=== PATIENT | female | born 1970 | race Caucasian/White ===

== ENCOUNTER 2024-12-04 19:11 | Observation (INO) | payer BC, SELFPAY ==
--- NOTE | ~2024-12-04 | XR_ITS ---
EXAMINATION: XR chest 1V portable DATE: 12/04/2024 21:39 INDICATION: Shortness of breath TECHNIQUE: frontal view of the chest was obtained. COMPARISON: None FINDINGS: The lungs are clear with no focal airspace opacities, pulmonary edema, pleural effusion or pneumothorax. The cardiomediastinal silhouette is normal. IMPRESSION: 1. No acute cardiopulmonary disease. Reviewed, dictated and finalized at location A.
--- NOTE | ~2024-12-04 | CT_ITS ---
EXAMINATION: CTA chest PE protocol DATE: 12/05/2024 09:50 INDICATION: Shortness of breath. TECHNIQUE: Computed tomography angiography (CTA) of the chest was performed with 100 mL Omnipaque-350 intravenous contrast timed to evaluate the pulmonary arteries. Coronal maximum intensity projection 3D-reconstructions were created by the technologist. Automated exposure control and iterative reconstruction technique were employed. The dose-length product was 1009.41 mGy-cm. COMPARISON: None. FINDINGS: The lungs demonstrate mild atelectasis. A calcified left lung nodule and calcified left hilar lymph nodes are consistent with old granulomatous disease. No pleural effusion. The heart size is normal. No pericardial effusion. There is no pulmonary embolus. There are changes of cholecystectomy. Calcifications in the spleen are consistent with old granulomatous disease. There is severe cervical, thoracic, and lumbar spondylosis. IMPRESSION: 1. No pulmonary embolus. Reviewed, dictated and finalized at location E. IMPRESSION: 1. No pulmonary embolus.
[2024-12-04 19:13] VITALS: BP 211/130; PULSE 107; RESP 18; TEMP 36.2; O2SAT 98
--- NOTE | 2024-12-04 19:13 | ECG_ITS ---
Test Date: 2024-12-04 19:19:48 Measurements Intervals [place] Rate: 105 P: 50 VA: 182 QRS: 61 QRSD: 110 T: 42 QT: 372 QTc: 492 Interpretive Statements SINUS TACHYCARDIA POSSIBLE LEFT ATRIAL ENLARGEMENT CONSIDER INFERIOR INFARCT, AGE INDETERMINATE CONSIDER ANTERIOR INFARCT, AGE INDETERMINATE BASELINE ARTIFACT- I, II, III, AVR, AVL, AVF, V1-V6 ABNORMAL ECG No previous ECG available for comparison Electronically Signed On 12-05-2024 06:33:11 CDT by Camilo Sauer D.O.
[2024-12-04 21:27] VITALS: BP 201/124; PULSE 86; RESP 13; O2SAT 98; O2SAT 99
[2024-12-04 21:39] LABS: Hematocrit 44.8 % (37.0-47.0); Hemoglobin 14.8 g/dL (12.0-15.0); Immature Granulocyte Percent A 0.4 % (0-0.5); Lymphocytes Absolute Auto 0.85 K/mm3 (0.9-3.2); Mean Corpuscular HGB Conc 33.0 g/dl (32-36); Mean Corpuscular Hemoglobin 30.6 pg (26-34); Mean Corpuscular Volume 92.8 fl (80-100); Nucleated Red Blood Cells Absolute Auto 0.000 K/mm3 (0.0-0.012); Nucleated Red Blood Cells Perc 0.0 % (0.0-0.2); Platelet Count Result 204 k/mm3 (150-375); Red Blood Count 4.83 M/mm3 (4.2-5.4); White Blood Count 8.5 K/mm3 (4.5-10.0)
[2024-12-04 21:51] LABS: Alanine Aminotransferase 29 U/L (6-35); Albumin Level 4.8 g/dL (3.5-5.1); Alkaline Phosphatase 126 U/L (38-126); Anion Gap 10 mmol/L (4-12); Aspartate Amino Transferase 37 U/L (14-36); Bilirubin,Total 0.6 mg/dL (0.2-1.3); Blood Urea Nitrogen 18 mg/dL (7-17); Calcium 9.5 mg/dL (8.4-10.2); Carbon Dioxide 25 mmol/L (22-30); Chloride 102 mmol/L (98-107); Estimated CRCL calculation 96 ml/min; Estimated Glomerular Filt Rate > 60; Glucose 127 mg/dL (65-110); Potassium 3.2 mmol/L (3.4-5.0); Sodium 137 mmol/L (137-145); Total Protein 8.3 g/dL (6.3-8.2)
--- NOTE | 2024-12-04 22:27 | ED.SOB ---
HPI - SOB/Dyspnea General Chief Complaint: Shortness of Breath/Dyspnea Stated Complaint: shortness of breath Time Seen by Provider: 12/04/24 22:07 Source: patient Mode of arrival: ambulatory Limitations: no limitations History of Present Illness HPI Narrative: Patient is a 54-year-old female presents to the emergency department accompanied by her son complaining of shortness of breath and nausea. Patient states she took a 5 hour energy shot her dinnertime and started to feel very nauseous and short of breath. Source of breath seems to be improving. Patient states she has high blood pressure and takes medications. Patient denies any chest pain. Patient was of symptoms and to be improving. Patient denies history of COPD. Patient has history of heart disease. Patient denies any recent injuries or recent illness. Patient denies any vomiting, melena, hematochezia, fever, focal weakness, numbness, cough. Patient denies any history of abnormal heart rhythms. Patient denies ever wearing a Holter monitor. Patient denies history of blood clots or unilateral lower extremity swelling. Related Data Allergies Allergy/AdvReac Type Severity Reaction Status Date / Time No Known Allergies Allergy Unverified 01/15/12 11:05 Review of Systems Review of Systems: A 10 system review of systems was completed on the patient and is negative except for what is stated in the HPI. Nursing and ancillary documentation was reviewed. Exam Narrative: CONST: No acute distress. Well nourished. HENMT: Head is normocephalic and atraumatic. Moist mucous membranes. No posterior oropharynx erythema. EYES: No scleral icterus. No conjunctival injection or pallor. PERRL. NECK: No meningeal signs. RESP: Able to speak in full sentences. Normal respiratory effort. CTAB. CARDIO: Regular rate. Regular rhythm. 2+ DP and radial pulses bilaterally. GI: Nondistended. No tenderness to palpation. Soft. : No CVA tenderness to palpation. SKIN: No rashes or lesions noted on exposed skin. NEURO: Oriented x3. Moves all extremities. EXTREM/MSK/BACK: No pedal edema. PSYCH: Normal affect. Course Vital Signs Vital signs: Vital Signs Temperature 97.2 F L 12/04/24 19:13 Pulse Rate 107 H 12/04/24 19:13 Respiratory Rate 18 12/04/24 19:13 Blood Pressure 211/130 H 12/04/24 19:13 Pulse Oximetry 98 12/04/24 19:13 Oxygen Delivery Room Air 12/04/24 19:13 Temperature 97.2 F L 12/04/24 19:13 Pulse Rate 78 12/04/24 23:39 Respiratory Rate 18 12/04/24 23:39 Blood Pressure 167/114 H 12/04/24 23:39 Pulse Oximetry 99 12/04/24 23:39 Oxygen Delivery Room Air 12/04/24 21:27 MDM - SOB/Dyspnea MDM Narrative Medical decision making narrative: Patient presents with the above complaint. Initial vitals are remarkable for tachycardia, blood pressure 211/130. Physical examination as noted above. DDx includes was not limited to: ACS, dysrhythmia, thyroid dysfunction, metabolic derangement, electrolyte derangement, pulmonary embolism, dehydration, adverse effect of caffeine, hypertensive urgency. Plan discussed: laboratory analysis, EKG, imaging. Patient ordered IVF, labetalol. EKG performed at 7:19 p.m. reveals a rate of 105, rhythm is sinus tachycardia, axis is normal, no ST elevations or depressions, no T-wave abnormalities, no previous EKG on file for comparison. Patient reports also being on Adderall at home sick potential confounder with double stimulant with the 5 hour energy in addition to the Adderall medication. Repeat troponin is less than 0.012. Patient is not having any chest pain. Patient was reassessed at the bedside. No changes in physical exam. Patient is in no acute distress. The patient has remained stable throughout the entire ED visit. Counseled patient regarding diagnostic results and potential diagnosis. Anticipatory guidance provided. Patient instructed to follow up with PCP and cardiology in 2 days. Patient counseled on: false reassurance from an emergency department evaluation; no current evidence of a medical emergency; return immediately for any new, recurrent, worsening, concerning, or refractory symptoms. Medications discussed with patient. Additional verbal and printed discharge instructions were given and discussed with the patient. Patient verbally acknowledges understanding of condition and discharge instructions. All questions were answered to the patient's satisfaction. Patient is in agreement with the plan of care. The patient is stable for discharge and was discharged without incident. Medical Records Attestation: I reviewed the patient's medical records. Lab Data Attestation: I reviewed the patient's lab results. Lab results narrative: CBC reveals no significant abnormalities. Comprehensive metabolic panel reveals a potassium 3.2, BUN of 18, glucose 127, AST of 37. Magnesium is 2.0. Troponin is less than 0.012. BNP is 101. Lipase 72. TSH is 1.97. D-dimer is 0.44. 12/04/24 21:33 12/04/24 21:33 Labs: Lab Results 12/04/24 12/05/24 Range/Units 21:33 00:36 WBC 8.5 (4.5-10.0) K/mm3 RBC 4.83 (4.2-5.4) M/mm3 Hgb 14.8 (12.0-15.0) g/dL Hct 44.8 (37.0-47.0) % MCV 92.8 (80-100) fl MCH 30.6 (26-34) pg MCHC 33.0 (32-36) g/dl RDW 12.4 (11.5-14.5) % Plt Count 204 (150-375) k/mm3 MPV 9.6 (7.4-10.4) fl Immature Gran % (Auto) 0.4 (0-0.5) % Neut % (Auto) 84.5 H (45.5-73.1) % Lymph % (Auto) 10.0 L (18.3-44.2) % [place] % (Auto) 4.1 (2.6-8.5) % Eos % (Auto) 0.5 (0-4.4) % Baso % (Auto) 0.5 (0.2-1.2) % Lymph # (Auto) 0.85 L (0.9-3.2) K/mm3 [place] # (Auto) 0.4 (0.1-0.6) K/mm3 Eos # (Auto) 0.0 (0-0.3) K/mm3 Baso # (Auto) 0.0 (0.0-0.1) K/mm3 Abs Immat Gran (auto) 0.03 (0.00-0.031) K/mm3 Absolute Neuts (auto) 7.2 H (1.3-6.7) K/mm3 Absolute Nucleated RBC 0.000 (0.0-0.012) K/mm3 Nucleated RBC % 0.0 (0.0-0.2) % D-Dimer 0.44 (<0.48) ug/mL Sodium 137 (137-145) mmol/L Potassium 3.2 L (3.4-5.0) mmol/L Chloride 102 (98-107) mmol/L Carbon Dioxide 25 (22-30) mmol/L Anion Gap 10 (4-12) mmol/L BUN 18 H (7-17) mg/dL Creatinine 0.69 L (0.7-1.0) mg/dL Estim Creat Clear Calc 96 ml/min Estimated GFR > 60 (59 - ) Glucose 127 H (65-110) mg/dL Calcium 9.5 (8.4-10.2) mg/dL Magnesium 2.0 (1.6-2.3) mg/dL Total Bilirubin 0.6 (0.2-1.3) mg/dL AST 37 H (14-36) U/L ALT 29 (6-35) U/L Alkaline Phosphatase 126 (38-126) U/L Troponin I < 0.012 < 0.012 (0.000-0.034) ng/mL NT-Pro-B Natriuret Pep 101 H (19.9-100) pg/mL Total Protein 8.3 H (6.3-8.2) g/dL Albumin 4.8 (3.5-5.1) g/dL Lipase 72 (23-300) U/L TSH (Reflex) 1.970 (0.465-4.68) uIU/mL Discharge Plan Discharge Clinical Impression: Acute dyspnea, Caffeine overdose, Acute hypokalemia, Hypertension, Other stimulant use, unspecified with intoxication delirium Patient Disposition: Home Condition: Stable Instructions: Antibiotic Form, Hypokalemia (ED), Dyspnea (ED), Caffeine Use (ED) Additional Instructions: Follow-up with your primary care physician and Cardiology in the next 2-3 days for reassessment, you will likely benefit from further outpatient workup such as a Holter monitor amongst other interventions such as stress testing. Avoid any caffeine use or any significant strenuous activity until seen by her doctors. Rest stay well-hydrated. Return immediately to the emergency department for any new or concerning symptoms especially any emergent concerns for life, limb, eyesight. Patient Language: [place] Follow-up/Referrals: Selam Mendenhall DO [Physician, Cardiology] - 2 Days Jhony Montalvo MD [Primary Care Provider, [facility]] - 2 Days Time of Disposition: 01:23
[2024-12-04] MEDS: POTASSIUM CHLORIDE 20 MEQ PACKET (FOR LIQUID) 40 MEQ PO (22:37)
[2024-12-04] MEDS: SODIUM CHLORIDE 0.9% IV 500 ML 999 ML IV CONT (22:37)
[2024-12-04] MEDS: ONDANSETRON INJ 4 MG/2 ML VIAL IV PUSH (22:37)
[2024-12-04 22:56] LABS: Lipase 72 U/L (23-300); Magnesium 2.0 mg/dL (1.6-2.3)
[2024-12-04 23:07] LABS: NT Pro B Type Natriuretic Pept 101 pg/mL (19.9-100); Troponin I < 0.012 ng/mL (0.000-0.034)
[2024-12-04 23:28] LABS: Thyroid Stimulating Hormone Reflex 1.970 uIU/mL (0.465-4.68)
[2024-12-04 23:39] VITALS: BP 167/114; PULSE 78; RESP 18; O2SAT 99
[2024-12-05] VITALS (13 sets, daily range): BP systolic 139–186; BP diastolic 84–125; PULSE 72–88; RESP 14–22; TEMP 36.6–36.8; O2SAT 96–100; BMI 38.9
--- NOTE | 2024-12-05 00:33 | ECG_ITS ---
Test Date: 2024-12-05 00:39:35 Measurements Intervals [place] Rate: 79 P: 42 TN: 194 QRS: 53 QRSD: 113 T: 42 QT: 427 QTc: 491 Interpretive Statements SINUS RHYTHM POSSIBLE LEFT ATRIAL ENLARGEMENT CONSIDER INFERIOR INFARCT, AGE INDETERMINATE BASELINE ARTIFACT- I, II, III, AVL, AVF ABNORMAL ECG Compared to ECG 12/04/2024 19:19:48 HEART RATE HAS DECREASED Electronically Signed On 12-05-2024 06:25:47 CDT by Camilo Sauer D.O.
[2024-12-05 01:04] LABS: Troponin I < 0.012 ng/mL (0.000-0.034)
--- NOTE | 2024-12-05 02:02 | PM.IMHP ---
H&P: HPI History of Present Illness Date/Time: 12/05/24 02:02 Chief Complaint: Shortness of breath Narrative: 54-year-old female with PMH uncontrolled hypertension, obesity class 2, ADD, caffeine intake, hypothyroidism, presents to [facility] ER on 12/04/2024 complaining of shortness of breath and nausea. Patient reports she has not taken her losartan for 2 days because she forgot, she has had uncontrolled blood pressure in the clinic and they were adjusting her medications. She drinks 2 coffees the morning of admission, she drank another 5 hour energy around dinner time because she was going to help someone set up a garage sale and felt tired. She lives with her son, her son reports his uncle mixes Ritalin into his 5 hour energy drink and it is possible she drink that one. The patient took her Adderall on the morning of admission. She reports the energy drink she had tasted odd. She denies any other drug abuse, smoking, alcohol use. Potassium 3.2 on admission, magnesium 2.0, troponin negative, D-dimer 0.44. EKG without significant ST changes. Blood pressure on arrival to , patient was given labetalol 20 mg IV x1 and her blood pressure improved to 167/114. I reviewed x-ray chest and there is no acute findings, final interpretation is pending. Patient does not have any leg swelling. She denies cough, fever, abdominal pain, diarrhea. In the ER she was given potassium pill, labetalol as described above, Zofran, she had no further chest pain or shortness of breath. Review of Systems Review of Systems: All systems reviewed & are unremarkable except as noted in HPI and below (Subjective) Meds Home Medications and Allergies Allergies Allergy/AdvReac Type Severity Reaction Status Date / Time No Known Allergies Allergy Unverified 01/15/12 11:05 Vital Signs Vital Signs - 24 hr 12/04/24 19:13 12/04/24 21:27 12/04/24 21:27 Temperature 97.2 F L Pulse Rate 107 H 86 Respiratory Rate 18 13 Blood Pressure 211/130 H 201/124 H Pulse Oximetry 98 98 99 Oxygen Delivery Room Air Room Air Room Air 12/04/24 23:39 Temperature Pulse Rate 78 Respiratory Rate 18 Blood Pressure 167/114 H Pulse Oximetry 99 Oxygen Delivery Exam Const: General: comfortable and no acute distress Other: A&O x3, obese HENMT: Mouth: Yes moist mucous membranes Eyes: Pupils: Equal, round and reactive pupils present Neck: Neck: supple Resp: Effort & Inspection: normal respiratory effort Auscultation: clear to auscultation bilaterally Cardio: Rate: regular rate Rhythm: regular rhythm Heart sounds: no murmurs GI: Inspection: non-distended GI Palp: Yes Soft to palpation and No Tenderness to palpation present (GI) : General: Yes bladder normal to palpation Neuro: Motor exam (neuro): 5/5 motor strength present throughout Extrem: General: no edema H&P: Results Labs Labs: Short CBC 12/04/24 Range/Units 21:33 WBC 8.5 (4.5-10.0) K/mm3 Hgb 14.8 (12.0-15.0) g/dL Hct 44.8 (37.0-47.0) % Plt Count 204 (150-375) k/mm3 BMP 12/04/24 21:33 Sodium 137 Potassium 3.2 L Chloride 102 Carbon Dioxide 25 BUN 18 H Creatinine 0.69 L Glucose 127 H Calcium 9.5 Cardiac Enzymes 12/04/24 12/05/24 Range/Units 21:33 00:36 Troponin I < 0.012 < 0.012 (0.000-0.034) ng/mL Liver Function 12/04/24 Range/Units 21:33 Total Bilirubin 0.6 (0.2-1.3) mg/dL AST 37 H (14-36) U/L ALT 29 (6-35) U/L Alkaline Phosphatase 126 (38-126) U/L Albumin 4.8 (3.5-5.1) g/dL Assessment and Plan Assessment and plan (1) Hypertensive urgency: Code(s): I16.0 - Hypertensive urgency Status: Acute (2) Hypertension: Code(s): I10 - Essential (primary) hypertension Status: Acute (3) Acute hypokalemia: Code(s): E87.6 - Hypokalemia Status: Acute (4) Stimulant intoxication: Code(s): F15.929 - Other stimulant use, unspecified with intoxication, unspecified Status: Acute Plan 54-year-old female with PMH uncontrolled hypertension, obesity class 2, ADD, caffeine intake, hypothyroidism, presents to [facility] ER on 12/04/2024 complaining of shortness of breath and nausea. Patient reports she has not taken her losartan for 2 days because she forgot, she has had uncontrolled blood pressure in the clinic and they were adjusting her medications. She drinks 2 coffees the morning of admission, she drank another 5 hour energy around dinner time because she was going to help someone set up a garage sale and felt tired. She lives with her son, her son reports his uncle mixes Ritalin into his 5 hour energy drink and it is possible she drink that one. The patient took her Adderall on the morning of admission. She reports the energy drink she had tasted odd. She denies any other drug abuse, smoking, alcohol use. Potassium 3.2 on admission, magnesium 2.0, troponin negative, D-dimer 0.44. EKG without significant ST changes. Blood pressure on arrival to 11/130, patient was given labetalol 20 mg IV x1 and her blood pressure improved to 167/114. I reviewed x-ray chest and there is no acute findings, final interpretation is pending. Patient does not have any leg swelling. She denies cough, fever, abdominal pain, diarrhea. In the ER she was given potassium pill, labetalol as described above, Zofran, she had no further chest pain or shortness of breath. ----- She reports after she took the 5 hour energy drink she felt very off, her heart was beating very fast. Her high blood pressure, shortness of breath, chest pressure likely primarily due to stimulant overuse. At the same time, she forgot to take her losartan, she has uncontrolled blood pressure. At this time we will admit the patient to IMU for further blood pressure control in telemetry. Restart losartan 100 mg p.o. q.day, start amlodipine 10 mg p.o. q.day. hydralazine 10 mg IV q.8 hours p.r.n. for SBP greater than 180. Counseled the patient on the importance of adhering to medication plan. She agrees and understands. Replace potassium as well as that can precipitate hypertension. Trend potassium and magnesium. Patient wishes to be full code. Saline lock IV. SCDs. Hospitalist MIPS Advance Care Plan I have confirmed that the patient's Advanced Care Plan is present, code status is documented, or surrogate decision maker is listed in patient medical record.: Yes Medication Reconciliation I have utilized all available resources to obtain, update and review the patients current medications (includes all prescriptions, OTC, herbals, cannabis, and nutritional supplements).: Yes
[2024-12-05] MEDS: LOSARTAN POTASSIUM 100 MG TABLET PO (02:14)
--- NOTE | 2024-12-05 07:12 | ADMGEN ---
This patient, Jessica Ruiz, was admitted to [facility]. Patient/family oriented to hospital policies and general routines including ID bracelet, bed and alarms, visiting hours, pain management, procedures, bathroom and other care routines, personal items, smoking policy, room service/diet, and visiting hours. Information on how to activate the Rapid Response Team has been discussed. Patient/Family are encouraged to report perceived risks to care and to ask questions if they do not understand what they are told or what they should do.
--- NOTE | 2024-12-05 08:59 | P.PNIM_ITS ---
Progress Note: A&P Assessment and Plan (1) Stimulant intoxication: Code(s): F15.929 - Other stimulant use, unspecified with intoxication, unspecified Status: Acute Assessment and Plan: * Reportedly took a 5 hour energy at around dinner time and felt off after that, with a very fast heart beat * Likely underlying cause of shortness of breath, chest pressure * Has not been taking losartan * Blood pressure upon admission: (2) Hypertensive urgency: Code(s): I16.0 - Hypertensive urgency Status: Acute Assessment and Plan: * Patient's blood pressure was reviewed on 12/05 * Blood pressure remains well controlled * Will continue current medications (3) Hypertension: Code(s): I10 - Essential (primary) hypertension Status: Acute Assessment and Plan: * See above (4) Acute hypokalemia: Code(s): E87.6 - Hypokalemia Status: Acute Plan 54-year-old female with PMH uncontrolled hypertension, obesity class 2, ADD, caffeine intake, hypothyroidism, presents to [facility] ER on 12/04/2024 complaining of shortness of breath and nausea. Patient reports she has not taken her losartan for 2 days because she forgot, she has had uncontrolled blood pressure in the clinic and they were adjusting her medications. She drinks 2 coffees the morning of admission, she drank another 5 hour energy around dinner time because she was going to help someone set up a garage sale and felt tired. She lives with her son, her son reports his uncle mixes Ritalin into his 5 hour energy drink and it is possible she drink that one. The patient took her Adderall on the morning of admission. She reports the energy drink she had tasted odd. She denies any other drug abuse, smoking, alcohol use. Potassium 3.2 on admission, magnesium 2.0, troponin negative, D-dimer 0.44. EKG without significant ST changes. Blood pressure on arrival to 11/130, patient was given labetalol 20 mg IV x1 and her blood pressure improved to 167/114. I reviewed x-ray chest and there is no acute findings, final interpretation is pending. Patient does not have any leg swelling. She denies cough, fever, abdominal pain, diarrhea. In the ER she was given potassium pill, labetalol as described above, Bethanyfran, she had no further chest pain or shortness of breath. ----- She reports after she took the 5 hour energy drink she felt very off, her heart was beating very fast. Her high blood pressure, shortness of breath, chest pressure likely primarily due to stimulant overuse. At the same time, she forgot to take her losartan, she has uncontrolled blood pressure. At this time we will admit the patient to IMU for further blood pressure control in telemetry. Restart losartan 100 mg p.o. q.day, start amlodipine 10 mg p.o. q.day. hydralazine 10 mg IV q.8 hours p.r.n. for SBP greater than 180. Cou nseled the patient on the importance of adhering to medication plan. She agrees and understands. Replace potassium as well as that can precipitate hypertension. Trend potassium and magnesium. Patient wishes to be full code. Saline lock IV. SCDs. Subjective Date/time seen: 12/05/24 08:59 Interval history: 54-year-old female with PMH uncontrolled hypertension, obesity class 2, ADD, caffeine intake, hypothyroidism, presents to [facility] ER on 12/04/2024 complaining of shortness of breath and nausea. Patient reports she has not taken her losartan for 2 days because she forgot, she has had uncontrolled blood pressure in the clinic and they were adjusting her medications. 12/05/2024 Review of Systems Review of Systems: All systems reviewed & are unremarkable except as noted in HPI and below Exam Const: General: comfortable and no acute distress Other: A&O x3, obese HENMT: Mouth: Yes moist mucous membranes Eyes: Pupils: Equal, round and reactive pupils present Neck: Neck: supple Resp: Effort & Inspection: normal respiratory effort Auscultation: clear to auscultation bilaterally Cardio: Rate: regular rate Rhythm: regular rhythm Heart sounds: no murmurs GI: Inspection: non-distended : General: Yes bladder normal to palpation Bimanual exam- vagina & uterus: bladder normal to palpation Neuro: Cranial nerves: Yes Equal, round and reactive pupils present Motor exam (neuro): 5/5 motor strength present throughout Extrem: General: no edema Objective Data Vital Signs Vital Signs: Vital Signs - 24 hr 12/04/24 19:13 12/04/24 21:27 12/04/24 21:27 Temperature 97.2 F L Pulse Rate 107 H 86 Respiratory Rate 18 13 Blood Pressure 211/130 H 201/124 H Pulse Oximetry 98 98 99 Oxygen Delivery Room Air Room Air Room Air 12/04/24 23:39 12/05/24 02:14 12/05/24 02:14 Temperature Pulse Rate 78 75 75 Respiratory Rate 18 22 H Blood Pressure 167/114 H 186/122 H Pulse Oximetry 99 99 Oxygen Delivery 12/05/24 03:19 12/05/24 04:24 12/05/24 05:00 Temperature Pulse Rate 73 72 80 Respiratory Rate 18 18 20 Blood Pressure 180/125 H 175/120 H 182/122 H Pulse Oximetry 99 98 97 Oxygen Delivery 12/05/24 05:37 12/05/24 06:01 12/05/24 07:00 Temperature 97.8 F Pulse Rate 82 83 82 Respiratory Rate 18 18 22 H Blood Pressure 153/103 H 143/93 H 143/84 H Pulse Oximetry 99 98 100 Oxygen Delivery 12/05/24 08:00 Temperature 98.2 F Pulse Rate 79 Respiratory Rate 18 Blood Pressure 145/91 H Pulse Oximetry 97 Oxygen Delivery Intake/Output Intake/Output: Intake & Output 12/02/24 12/03/24 12/04/24 12/05/24 23:59 23:59 23:59 23:59 Intake Total 500 Balance 500 Meds/Results Medications: Active Medications Generic Name Dose Route Start Last Admin Trade Name Freq PRN Reason Stop Dose Admin Amlodipine Besylate 10 mg 12/05/24 02:00 12/05/24 02:14 Amlodipine Besylate 10 Mg Tablet PO 10 mg DAILY RADHA Administration Hydralazine HCl 10 mg 12/05/24 02:01 12/05/24 04:54 Hydralazine Hcl 20 Mg/Ml Vial IV PUSH 10 mg Q8H PRN Administration Blood Pressure - High Losartan Potassium 100 mg 12/05/24 02:00 12/05/24 02:14 Losartan Potassium 100 Mg Tablet PO 100 mg DAILY RADHA Administration Labs Labs: Laboratory Results - last 24 hr 12/04/24 12/05/24 21:33 00:36 WBC 8.5 RBC 4.83 Hgb 14.8 Hct 44.8 MCV 92.8 MCH 30.6 MCHC 33.0 RDW 12.4 Plt Count 204 MPV 9.6 Immature Gran % (Auto) 0.4 Neut % (Auto) 84.5 H Lymph % (Auto) 10.0 L [place] % (Auto) 4.1 Eos % (Auto) 0.5 Baso % (Auto) 0.5 Lymph # (Auto) 0.85 L [place] # (Auto) 0.4 Eos # (Auto) 0.0 Baso # (Auto) 0.0 Abs Immat Gran (auto) 0.03 Absolute Neuts (auto) 7.2 H Absolute Nucleated RBC 0.000 Nucleated RBC % 0.0 D-Dimer 0.44 Sodium 137 Potassium 3.2 L Chloride 102 Carbon Dioxide 25 Anion Gap 10 BUN 18 H Creatinine 0.69 L Estim Creat Clear Calc 96 Estimated GFR > 60 Glucose 127 H Calcium 9.5 Magnesium 2.0 Total Bilirubin 0.6 AST 37 H ALT 29 Alkaline Phosphatase 126 Troponin I < 0.012 < 0.012 NT-Pro-B Natriuret Pep 101 H Total Protein 8.3 H Albumin 4.8 Lipase 72 TSH (Reflex) 1.970
[2024-12-05 09:38] LABS: Hematocrit 42.5 % (37.0-47.0); Hemoglobin 14.0 g/dL (12.0-15.0); Immature Granulocyte Percent A 0.3 % (0-0.5); Lymphocytes Absolute Auto 1.46 K/mm3 (0.9-3.2); Mean Corpuscular HGB Conc 32.9 g/dl (32-36); Mean Corpuscular Hemoglobin 30.6 pg (26-34); Mean Corpuscular Volume 92.8 fl (80-100); Nucleated Red Blood Cells Absolute Auto 0.000 K/mm3 (0.0-0.012); Nucleated Red Blood Cells Perc 0.0 % (0.0-0.2); Platelet Count Result 211 k/mm3 (150-375); Red Blood Count 4.58 M/mm3 (4.2-5.4); White Blood Count 6.5 K/mm3 (4.5-10.0)
[2024-12-05 10:37] LABS: Anion Gap 7 mmol/L (4-12); Blood Urea Nitrogen 14 mg/dL (7-17); Calcium 9.3 mg/dL (8.4-10.2); Carbon Dioxide 25 mmol/L (22-30); Chloride 102 mmol/L (98-107); Estimated CRCL calculation 95 ml/min; Estimated Glomerular Filt Rate > 60; Glucose 123 mg/dL (65-110); Magnesium 2.1 mg/dL (1.6-2.3); Potassium 3.7 mmol/L (3.4-5.0); Sodium 134 mmol/L (137-145)
--- NOTE | 2024-12-05 10:57 | ADMGEN ---
This patient, Jessica Ruiz, was admitted to IMU Room 202-. Patient/family oriented to hospital policies and general routines including ID bracelet, bed and alarms, visiting hours, pain management, procedures, bathroom and other care routines, personal items, smoking policy, room service/diet, and visiting hours. Information on how to activate the Rapid Response Team has been discussed. Patient/Family are encouraged to report perceived risks to care and to ask questions if they do not understand what they are told or what they should do.
--- NOTE | 2024-12-05 14:24 | P.DS_ITS ---
DS: Admitting Diagnosis Discharge Date 12/05/2024 Admitting Diagnosis Stimulant intoxication, hypertensive urgency DS: Discharge Diagnosis Discharge Diagnosis (1) Stimulant intoxication: Code(s): F15.929 - Other stimulant use, unspecified with intoxication, unspecified Status: Acute Assessment and Plan: * Reportedly took a 5 hour energy at around dinner time and felt off after that, with a very fast heart beat * Likely underlying cause of shortness of breath, chest pressure * Has not been taking losartan (2) Hypertensive urgency: Code(s): I16.0 - Hypertensive urgency Status: Acute Assessment and Plan: * Patient's blood pressure was reviewed on 12/05 * Blood pressure remains well controlled * Will continue current medications (3) Hypertension: Code(s): I10 - Essential (primary) hypertension Status: Acute Assessment and Plan: * See above (4) Acute hypokalemia: Code(s): E87.6 - Hypokalemia Status: Acute Plan 54-year-old female with PMH uncontrolled hypertension, obesity class 2, ADD, caffeine intake, hypothyroidism, presents to [facility] ER on 12/04/2024 complaining of shortness of breath and nausea. Patient reports she has not taken her losartan for 2 days because she forgot, she has had uncontrolled blood pressure in the clinic and they were adjusting her medications. She drinks 2 coffees the morning of admission, she drank another 5 hour energy around dinner time because she was going to help someone set up a garage sale and felt tired. She lives with her son, her son reports his uncle mixes Ritalin into his 5 hour energy drink and it is possible she drink that one. The patient took her Adderall on the morning of admission. She reports the energy drink she had tasted odd. She denies any other drug abuse, smoking, alcohol use. Potassium 3.2 on admission, magnesium 2.0, troponin negative, D-dimer 0.44. EKG without significant ST changes. Blood pressure on arrival to 11/130, patient was given labetalol 20 mg IV x1 and her blood pressure improved to 167/114. I reviewed x-ray chest and there is no acute findings, final interpretation is pending. Patient does not have any leg swelling. She denies cough, fever, abdominal pain, diarrhea. In the ER she was given potassium pill, labetalol as described above, Joe, she had no further chest pain or shortness of breath. ----- She reports after she took the 5 hour energy drink she felt very off, her heart was beating very fast. Her high blood pressure, shortness of breath, chest pressure likely primarily due to stimulant overuse. At the same time, she forgot to take her losartan, she has uncontrolled blood pressure. At this time we will admit the patient to IMU for further blood pressure control in telemetry. Restart losartan 100 mg p.o. q.day, start amlodipine 10 mg p.o. q.day. hydralazine 10 mg IV q.8 hours p.r.n. for SBP greater than 180. Counseled the patient on the importance of adhering to medication plan. She agrees and understands. Replace potassium as well as that can precipitate hypertension. Trend potassium and magnesium. Patient wishes to be full code. Saline lock IV. SCDs. DS: Summary Hospital Course Reason for hospitalization: Shortness of breath Hospital Course: Per HPI: 54-year-old female with PMH uncontrolled hypertension, obesity class 2, ADD, caffeine intake, hypothyroidism, presents to [facility] ER on 12/04/2024 complaining of shortness of breath and nausea. Patient reports she has not taken her losartan for 2 days because she forgot, she has had uncontrolled blood pressure in the clinic and they were adjusting her medications. She drinks 2 coffees the morning of admission, she drank another 5 hour energy around dinner time because she was going to help someone set up a garage sale and felt tired. She lives with her son, her son reports his uncle mixes Ritalin into his 5 hour energy drink and it is possible she drink that one. The patient took her Adderall on the morning of admission. She reports the energy drink she had tasted odd. She denies any other drug abuse, smoking, alcohol use. Potassium 3.2 on admission, magnesium 2.0, troponin negative, D-dimer 0.44. EKG without significant ST changes. Blood pressure on arrival to 11/130, patient was given labetalol 20 mg IV x1 and her blood pressure improved to 167/114. I reviewed x-ray chest and there is no acute findings, final interpretation is pending. Patient does not have any leg swelling. She denies cough, fever, abdominal pain, diarrhea. In the ER she was given potassium pill, labetalol as described above, Zofran, she had no further chest pain or shortness of breath. She was admitted to the IMU for further blood pressure control in telemetry. Upon further investigation, patient revealed that her brother reported put crystal meth in his 5 hour energy drink and she accidentally drank half of this before realizing this was not her normal drink. At this point she still feels slightly anxious but this improved after our discussion. At time of examination, she denied any chest pain, shortness of breath, nausea/vomiting, dizziness/headache or numbness/tingling. Chest CTA was obtained to rule out pulmonary embolism and this was negative for any acute findings. Blood work and vital signs remained stable throughout hospitalization. Patient is otherwise hemodynamically stable for discharge at this time. She is amenable to discharge as well. Plan for discharge home at this time. Status at Discharge Functional status at discharge: independent ambulation Overall status at discharge: patient is back to baseline Time Spent with Patient Time attestation: Total time spent providing and/or coordinating discharge services: 32 Exam Const: Other: A&O x3, obese DS: Data Data Completed and Pending Labs on day of discharge: Labs from last 24 hours 12/05/24 12/05/24 12/04/24 09:34 00:36 21:33 WBC 6.5 8.5 RBC 4.58 4.83 Hgb 14.0 14.8 Hct 42.5 44.8 MCV 92.8 92.8 MCH 30.6 30.6 MCHC 32.9 33.0 RDW 12.4 12.4 Plt Count 211 204 MPV 9.8 9.6 Immature Gran % (Auto) 0.3 0.4 Neut % (Auto) 67.2 84.5 H Lymph % (Auto) 22.5 10.0 L [place] % (Auto) 7.9 4.1 Eos % (Auto) 1.8 0.5 Baso % (Auto) 0.3 0.5 Lymph # (Auto) 1.46 0.85 L [place] # (Auto) 0.5 0.4 Eos # (Auto) 0.1 0.0 Baso # (Auto) 0.0 0.0 Abs Immat Gran (auto) 0.02 0.03 Absolute Neuts (auto) 4.4 7.2 H Absolute Nucleated RBC 0.000 0.000 Nucleated RBC % 0.0 0.0 D-Dimer 0.44 Sodium 134 L 137 Potassium 3.7 3.2 L Chloride 102 102 Carbon Dioxide 25 25 Anion Gap 7 10 BUN 14 18 H Creatinine 0.70 0.69 L Estim Creat Clear Calc 95 96 Estimated GFR > 60 > 60 Glucose 123 H 127 H Calcium 9.3 9.5 Magnesium 2.1 2.0 Total Bilirubin 0.6 AST 37 H ALT 29 Alkaline Phosphatase 126 Troponin I < 0.012 < 0.012 NT-Pro-B Natriuret Pep 101 H Total Protein 8.3 H Albumin 4.8 Lipase 72 TSH (Reflex) 1.970 Discharge Plan Discharge Attending physician on discharge: Cade Holden Consulting providers: Ze Silverman Discharging Clinician: Ze Silverman Anticipated Discharge Date/Time: 12/05/24 14:22 Patient Disposition: Home Activity: as tolerated Diet: regular Discharge Instructions: Discharge disposition: Take medications as prescribed Monitor blood pressures Take caution while standing, rising, or moving Change positions slowly taking a break between each position change If you standing feel dizzy sit back down and take a break Encouraged to continue with yearly vaccinations Return to the emergency department if you develop sudden shortness of breath, chest pain, nausea, vomiting, upset stomach or intractable diarrhea Return to the emergency department if you develop fever greater than 101.5 Follow-up with the primary care physician within 1-2 weeks Thank you for [facility] for your healthcare needs Patient Instructions: Antibiotic Form Patient Language: [place] Stand Alone Forms: General Discharge Information Follow-up/Referrals: Jhony Montalvo MD [Primary Care Provider, Family Practice] Discharge Medications: Continued losartan 50 mg tablet 50 mg PO DAILY meloxicam 15 mg tablet 15 mg PO DAILY dextroamphetamine-amphetamine 20 mg capsule,extended release 24hr 20 mg PO DAILY levothyroxine 50 mcg tablet 50 mcg PO DAILY losartan 100 mg tablet 100 mg PO DAILY escitalopram oxalate 10 mg tablet 10 mg PO DAILY Date of admission: 12/05/24 01:37 Primary Care Provider: Jhony Montalvo Admitting Provider: Marium Neely Attending physician on admission: Marium Neely Condition: Stable
== END 2024-12-05 15:13 | disposition home or self-care (01) ==
LOC: ANHED 12-05 01:36 → ANH3MEDSUR 12-05 06:57 → ANHIMU 12-05 10:22 → ANH3MEDSUR 12-08 07:48 → ANHIMU 12-08 07:48
PROVIDERS: Physician Assistant; Admitting Provider General Practice; Emergency Provider Student in an Organized Health Care Education/Training Program; PCP Student in an Organized Health Care Education/Training Program; Visit Provider Internal Medicine
DX: I16.0 Hypertensive urgency (principal); F15.929 Other stimulant use, unspecified with intoxication, unspecified; I10 Essential (primary) hypertension; E87.6 Hypokalemia; R94.31 Abnormal electrocardiogram [ECG] [EKG]; E66.812 Obesity, class 2; Z68.39 Body mass index [BMI] 39.0-39.9, adult; E03.9 Hypothyroidism, unspecified; F98.8 Other specified behavioral and emotional disorders with onset usually occurring in childhood and adolescence
CPT/HCPCS: 36415; 71045; 71275; 80048; 80053; 83690; 83735; 83880; 84443; 84484; 85025; 85380; 93005; 96361; 96374; 96375; 96376; 99285; A9270; G0378; J0360; J2405; J7040; Q9967